=== PATIENT | female | born 1955 | race Two or more races ===

== ENCOUNTER 2024-03-03 13:11 | Outpatient (REF) | payer MEDICARE, SELFPAY | END 2024-03-03 13:12 | disposition home or self-care (01) | LOC: LAB 13:11 | PROVIDERS: Visit Provider Obstetrics & Gynecology | DX: L91.8 Other hypertrophic disorders of the skin (principal); D18.01 Hemangioma of skin and subcutaneous tissue | CPT/HCPCS: 88304; 88305 ==